=== PATIENT | male | born 1960 | race Caucasian/White ===

== ENCOUNTER 2023-09-14 12:27 | Observation (INO) ==
[2023-09-14 14:02] VITALS: BMI 24.8
[2023-09-14] MEDS ORDERED: NS IRRIGATION* 500 ML IR ONE (14:21)
[2023-09-14] MEDS ORDERED: STERILE WATER IRRIGATION IR ONE (14:21)
[2023-09-14] MEDS: LR 1,000 ML IV 1,000 ML IV ONE ×2 (14:32→16:38)
--- NOTE | 2023-09-14 14:41 | DR.H&P ---
H&P History & Physical for Day of: H&P Date: 09/14/23 Chief Complaint Chief Complaint: Right lower quadrant pain Allergies Allergies Allergy/AdvReac Type Severity Reaction Status Date / Time ampicillin Allergy Verified 09/14/23 14:06 History of Present Illness History of Present Illness: 63 year old male with 22 history of increasing right lower quadrant pain ,worse this morning. Evaluated at the emergency room in [facility] and CT scan consistent with acute appendicitis with no evidence of rupture. Past Medical History Past Medical History: Hypertension Additional Medical History: Fibromyalgia. Left-sided Thoracic outlet syndrome which has not had surgery. Neuropathy. Past Surgical History Surgical History: Ortho Surgery (Of the cervical spine ) and Other (history of bilateral inguinal hernia repair in the past ) Family History Family Medical History: Diabetes Mellitus, Cancer, [place], Coronary Artery Disease, Heart Failure and Hypertension Social History Does patient currently use any type of tobacco product: Yes Type of Tobacco Use: Cigarettes How many years tobacco product used: 55 Packs per day or dips/chews per day: 1pk/day Alcohol Use: None Drug Use: None Medications Home Medications: Home Medications Medication Instructions Recorded Confirmed Type aspirin 81 mg tablet,delayed 81 mg PO DAILY 09/14/23 09/14/23 History release (Adult Low Dose Aspirin) diazepam 5 mg tablet 5 mg PO BID 09/14/23 09/14/23 History lisinopril 10 mg tablet 10 mg PO QDAY 09/14/23 09/14/23 History pregabalin 150 mg capsule 150 mg PO DAILY 09/14/23 09/14/23 History Labs Labs: today performed at [facility] showing sodium 138 , creatinin= 1.0, white blood cell count 25483 and hemoglobin 17.5 G ,with platlet count of [id number] Review of Systems Constitutional: See HPI Eyes: No Symptoms Reported ENT: No Symptoms Reported Respiratory: No Symptoms Reported Cardiovascular: No Symptoms Reported Gastrointestinal: Other (reflux ) Genitourinary: No Symptoms Reported Musculoskeletal: Other (has bilateral lower extremity neuropathy ) Skin: No Symptoms Reported Neurological: Other (history cervical spine surgery in the past, diagnosis of thoracic outlet syndrome of the left side. ) Physical Exam Vital Signs: Vital Signs Temperature 97.4 F Pulse Rate [Brachial] 58 Respiratory Rate 20 Blood Pressure [Right Arm] 135/74 O2 Sat by Pulse Oximetry 97 Oriented: Normal, Time, Person and Place Eyes: Normal Ear: Normal Nose: Normal Throat: Normal Respiratory: Clear Throughout Cardiovascular: Normal : Normal Auscultation: Bowel Sounds: Normal Palpation: Other (Appendix palpable right lower quadrant. ) Tenderness: Rebound (right lower quadrant ) and Rigidity (Right lower quadrant ) Skin: Normal Musculoskeletal: Normal Psychiatric: Normal Mood Description: Calm Affect: Normal Speech Pattern: Clear Assessment/Plan (1) Acute appendicitis: Status: Acute Plan: patient will be taken to the operating room for laparoscopic appendectomy. Risk and benefits of the procedure discussed including those of bleeding, infection, and bowel perforation. Also discussed the possibility of having to convert to an open operation Which is less than 1% in my hands in this instance.
[2023-09-14] MEDS ORDERED: BARHEMSYS INJ IVP PRN (14:47)
[2023-09-14] MEDS ORDERED: BENADRYL INJ 50 MG VIAL IVP PRN (14:47)
[2023-09-14] MEDS ORDERED: DILAUDID INJ IVP PRN (14:47)
[2023-09-14] MEDS ORDERED: ZOFRAN INJ 4 MG VIAL IVP PRN (14:47)
[2023-09-14] MEDS ORDERED: REGLAN INJ 10 MG VIAL IVP PRN (14:47)
[2023-09-14] MEDS: FENTANYL VIAL INJ 250 mcg ONE ×2 (14:52→16:38)
[2023-09-14] MEDS: NS 100 ML IV 100 ML ONE ×2 (14:52→16:40)
[2023-09-14] MEDS: PEPCID 20 MG VIAL ONE ×2 (14:52→16:39)
[2023-09-14] MEDS: ANCEF VIAL 1 GRAM ONE ×2 (14:52→16:37)
[2023-09-14] MEDS: BRIDION ONE ×2 (14:52→16:37)
[2023-09-14] MEDS: ZEMURON 100 MG VIAL ONE ×2 (14:52→16:39)
[2023-09-14] MEDS: VERSED ONE ×2 (14:52→16:39)
[2023-09-14] MEDS: ZOFRAN INJ 4 MG VIAL ONE ×2 (14:52→16:40)
[2023-09-14] MEDS ORDERED: SUPRANE ONE (14:52)
[2023-09-14] MEDS: DIPRIVAN VIAL 20 ML ONE ×2 (14:52→16:38)
[2023-09-14] MEDS: QUELICIN (OR ANECTINE) ONE ×2 (14:52→16:39)
[2023-09-14] MEDS: BACTROBAN TOPICAL OINT ONE ×2 (15:17→16:40)
[2023-09-14] MEDS: MARCAINE 0.5% ONE ×2 (15:25→16:41)
--- NOTE | 2023-09-14 15:32 | OR.IMMED ---
IMMEDIATE POST-OP NOTE Immediate Post-Op Note Pre-Op Diagnosis: Acute appendicitis Post-Op Diagnosis: same Procedure: laparoscopic appendectomy Description of Procedure: see dictation Surgeon/[employer] Sales Representative: Leonor Specimens Removed: appendix Drains: NONE Complications: none Progress Notes: return to floor. Again diet. Discharge home when taking diet and tolerating po pain medications.
[2023-09-14] MEDS: LR 1,000 ML IV 1,000 ML IV SCH (16:49)
[2023-09-14] MEDS: PERCOCET TAB 5/325 MG PO PRN (19:07)
--- NOTE | 2023-09-14 21:58 | DR.OPNOTE ---
OP NOTE Pre-Op Diagnosis: acute appendicitis Post-Op Diagnosis: same Procedure Date Date Of Procedure: 09/14/23 Procedure: PROCEDURE : Laparoscopic appendectomy MARRATIVE: The patient was taken to the operative suite and placed in the supine position. General endotracheal anesthesia induced and the entire abdomen prepped and draped in sterile fashion. Time out for the procedure obtained . A 5 mm incision was made lateral to the left rectus sheath on line with the umbilicus and a 5 mm Optical trocar used to enter the abdominal cavity and the abdomen insufflated to 15 mm of mercury with carbon dioxide. Under direct Vision a 5 mm trocar placed above the pubic tubercles and a 12 mm trocar placed in the left lower quadrant. Patient had acute appendicitis with no perforation . Two fires of the endo BULMARO stapler used to excise the appendix and it's mesentery The appendix was placed in a specimen bag and removed through the left lower quadrant trocar site.All trocars removed. All incisions closed with interupted 3-0 Vicryl un subcutaneous tissue. Ten ccs of 0,5% Marcaine was injected in the three incisions. Patietn extubated and taken to the recovery room in good condition. Type of Anesthesia: General Anesthetic w/ETT Findings: acute appendicitis Specimen/Pathology: appendix Type of Fluids Used:: Lactated Ringers EBL: minimal Complications:: none Needle/Sponge Count:: correct Disposition/Condition: Pt. tolerated procedure without difficulty. Extubated in the OR and taken to PACU in stable condition.
[2023-09-15] MEDS: VALIUM PO SCH ×3 (00:19→09:06)
[2023-09-15] MEDS: LR 1,000 ML IV 1,000 ML IV SCH ×2 (04:48→14:16)
[2023-09-15] MEDS ORDERED: LOVENOX INJ 40 MG SYR SC SCH (09:00)
[2023-09-15] MEDS ORDERED: ZESTRIL TAB 10 MG PO SCH (09:00)
[2023-09-15] MEDS ORDERED: LYRICA CAP 150 mg PO SCH (09:00)
[2023-09-15 09:04] VITALS: O2SAT 95
[2023-09-15] MEDS: PERCOCET TAB 5/325 MG PO PRN ×3 (10:27→17:56)
[2023-09-15 12:32] VITALS: BP 137/65; PULSE 58; RESP 20; TEMP 98.6
--- NOTE | 2023-09-15 16:29 | W.DIS.FURT ---
Summary of Discharge Discharge Summary of Date Date of Exam: 09/15/23 Admission Date Date of Admission: 09/14/23 Admission Diagnosis Hospital Course: 63 year old male who presented with acute right lower quadrant pain with CT scan consistent with acute appendicitis .Underwent uncomplicated laparoscopic appendectomy. He has done well. Taking liquids. Still complaining of some other quadrant tenderness but improved When was the last a little He will be discharged home at this time on his usual medications .he will follow up with me in one week. He will be given a prescription for Percocet, 5 mg tablets, one every six hours PRN pain. Vital Signs: Vital Signs (72 hours) 09/14/23 13:37 09/14/23 13:49 09/14/23 15:38 Temperature 97.4 F L 97.0 F L Pulse Rate 56 L Pulse Rate [Brachial] 58 L Respiratory Rate 20 20 Blood Pressure 176/86 Blood Pressure [Right Arm] 135/74 O2 Sat by Pulse Oximetry 97 97 Oxygen Delivery Method Room Air Room Air Aerosol Face Tent 09/14/23 15:43 09/14/23 15:48 09/14/23 15:53 Temperature Pulse Rate 61 64 57 L Pulse Rate [Brachial] Respiratory Rate 20 20 20 Blood Pressure 129/64 122/61 157/77 Blood Pressure [Right Arm] O2 Sat by Pulse Oximetry 100 99 100 Oxygen Delivery Method Aerosol Face Tent Aerosol Face Tent Nasal Cannula 09/14/23 15:58 09/14/23 16:03 09/14/23 16:08 Temperature Pulse Rate 58 L 56 L 59 L Pulse Rate [Brachial] Respiratory Rate 20 18 18 Blood Pressure 136/75 145/71 133/75 Blood Pressure [Right Arm] O2 Sat by Pulse Oximetry 99 98 98 Oxygen Delivery Method Nasal Cannula Nasal Cannula Nasal Cannula 09/14/23 16:15 09/14/23 16:30 09/14/23 16:45 Temperature 98.1 F 97.9 F 97.9 F Pulse Rate Pulse Rate [Brachial] 53 L 51 L 54 L Respiratory Rate 20 20 20 Blood Pressure Blood Pressure [Right Arm] 127/81 130/76 134/89 O2 Sat by Pulse Oximetry 96 98 95 Oxygen Delivery Method 09/14/23 17:00 09/14/23 17:15 09/14/23 18:15 Temperature 98.1 F 98.1 F 99.3 F Pulse Rate Pulse Rate [Brachial] 57 L 57 L 56 L Respiratory Rate 18 18 20 Blood Pressure Blood Pressure [Right Arm] 146/81 138/65 133/63 O2 Sat by Pulse Oximetry 96 97 97 Oxygen Delivery Method 09/14/23 19:07 09/14/23 20:07 09/14/23 19:00 Temperature Pulse Rate Pulse Rate [Brachial] Respiratory Rate 20 21 Blood Pressure Blood Pressure [Right Arm] O2 Sat by Pulse Oximetry Oxygen Delivery Method Room Air 09/14/23 20:00 09/14/23 19:15 09/14/23 20:15 Temperature 98.5 F 98.5 F 98.2 F Pulse Rate Pulse Rate [Brachial] 62 62 54 L Respiratory Rate 22 22 19 Blood Pressure Blood Pressure [Right Arm] 160/77 160/77 157/80 O2 Sat by Pulse Oximetry 97 97 98 Oxygen Delivery Method Room Air Room Air Room Air 09/14/23 21:15 09/15/23 00:00 09/15/23 04:00 Temperature 98.7 F 99.6 F 100.4 F H Pulse Rate Pulse Rate [Brachial] 53 L 58 L 64 Respiratory Rate 18 18 20 Blood Pressure Blood Pressure [Right Arm] 143/73 132/61 120/57 O2 Sat by Pulse Oximetry 95 94 L 92 L Oxygen Delivery Method Room Air Room Air Room Air 09/15/23 08:00 09/15/23 07:00 09/15/23 10:27 Temperature 98.8 F Pulse Rate Pulse Rate [Brachial] 62 Respiratory Rate 19 19 Blood Pressure Blood Pressure [Right Arm] 126/71 O2 Sat by Pulse Oximetry 95 Oxygen Delivery Method Room Air Room Air 09/15/23 11:27 09/15/23 12:00 09/15/23 14:16 Temperature 98.6 F Pulse Rate Pulse Rate [Brachial] 58 L Respiratory Rate 19 20 20 Blood Pressure Blood Pressure [Right Arm] 137/65 O2 Sat by Pulse Oximetry 95 Oxygen Delivery Method Room Air 09/15/23 15:16 Temperature Pulse Rate Pulse Rate [Brachial] Respiratory Rate 20 Blood Pressure Blood Pressure [Right Arm] O2 Sat by Pulse Oximetry Oxygen Delivery Method Reason For Visit: APPENDICITIS Discharge Date Discharge Date: 09/15/23 Discharge Diagnosis All Active Problems (Updated 09/14/23 @ 14:40 by Alvin Galvez) Acute appendicitis (Acute) Plan of Treatment: Continue with present treatment and follow up plan. Pt is to keep follow up appointment as instructed and take medications as ordered. Discharge Medications Discharge Medications: ampicillin Allergy (Verified 09/14/23 14:06) CONTINUE taking the following medications aspirin 81 mg tablet,delayed release (Adult Low Dose Aspirin) 81 mg PO DAILY 09/14/23 [History] diazepam 5 mg tablet 5 mg PO BID 09/14/23 [History] lisinopril 10 mg tablet 10 mg PO QDAY 09/14/23 [History] pregabalin 150 mg capsule 150 mg PO DAILY 09/14/23 [History] Discharge Disposition Assessment: see hospital course Discharge Plan Discharge Plan Hospital Course: 63 year old male who presented with acute right lower quadrant pain with CT scan consistent with acute appendicitis .Underwent uncomplicated laparoscopic appendectomy. He has done well. Taking liquids. Still complaining of some other quadrant tenderness but improved When was the last a little He will be discharged home at this time on his usual medications .he will follow up with me in one week. He will be given a prescription for Percocet, 5 mg tablets, one every six hours PRN pain. Patient Disposition: HOME, SELF-CARE Condition: Stable Health Concerns: Post Hospitalization: new medications and changes needed to prevent readmission or further decline. Pt educated and given instructions on all concerns. Plan of Treatment: Continue with present treatment and follow up plan. Pt is to keep follow up appointment as instructed and take medications as ordered. Assessment: see hospital course Prescriptions: New oxycodone-acetaminophen [Percocet] 5-325 mg tablet 1 tab PO Q6H MDD 4 PRNQty: 30 0RF Continued aspirin [Adult Low Dose Aspirin] 81 mg Tablet,Delayed Release (Dr/Ec) 81 mg PO DAILY lisinopril 10 mg tablet 10 mg PO QDAY diazepam 5 mg tablet 5 mg PO BID Patient Comments: PLEASE SEE ATTACHED FOR DETAILED DIRECTIONS pregabalin 150 mg capsule 150 mg PO DAILY Patient Comments: PLEASE SEE ATTACHED FOR DETAILED DIRECTIONS Orders to Discharge Patient Discharge Orders: Discharge (Routine); Ordered 09/15/23 Ordered By: Alvin Galvez Follow ups/Referrals Follow ups/Referrals: Alvin Galvez [Primary Care Provider] - 1 WEEK Instructions Instructions: Laparoscopic Appendectomy, Adult, Care After, [id number] Stand Alone Forms: Excuse From Work or School, Post Hospital Follow Up Care
== END 2023-09-15 17:56 | disposition home or self-care (01) ==
LOC: MED/SURG
PROVIDERS: ADMIT Surgery; ATTEND Surgery
PROC: APPYLAP (ICD-10-PCS; 2023-09-14 14:45)